=== PATIENT | female | born 1965 | race Caucasian/White ===

== ENCOUNTER 2017-06-25 07:29 | Day surgery (SDC) | payer MEDICAID ==
[2017-06-25] MEDS ORDERED: Lactated Ringers 1,000 ML IV SCH (08:30)
[2017-06-25] MEDS ORDERED: fentaNYL 100 MCG/2 ML SDV ONE (08:57)
[2017-06-25] MEDS ORDERED: Propofol 200 MG/20 ML SDV ONE (08:57)
[2017-06-25] MEDS ORDERED: Midazolam 1 MG/ML 2 ML SDV ONE (08:58)
[2017-06-25 11:15] VITALS: BP 129/82
--- NOTE | 2017-06-25 14:38 | OR ---
DATE OF PROCEDURE: 06/25/2017 PREOPERATIVE DIAGNOSIS: Colon cancer screening. POSTOPERATIVE DIAGNOSIS: Three colon polyps. PROCEDURE PERFORMED: Colonoscopy to the cecum with biopsy and then snare cautery polypectomy of transverse colon polyp. Snare cautery polypectomy of polyp at 25 cm from the anal verge, and biopsy resection of small polyp 20 cm from the anal verge. ANESTHESIA: IV anesthesia with monitored anesthesia care. INDICATION: This 51-year-old white female is referred for a colonoscopy for colon cancer screening. She has never had a colonoscopic exam. I counseled her for the procedure including risks and alternatives, and she gave her informed consent to proceed. DESCRIPTION OF PROCEDURE: The patient was placed in the left lateral decubitus position. IV anesthesia was administered by the Anesthesia Service. Time-out was held. A rectal exam was performed, which was unremarkable. The flexible video Olympus colonoscope was introduced through her anus, up her rectum, and out her colon all way to the cecum. Once the cecum was reached, the scope was slowly withdrawn, examining the mucosa throughout. In the transverse colon, we saw a sessile polyp. We initially biopsied this, it was too large to remove using this technique. A snare was passed about its base; it was elevated up away from the bowel wall. Electrocautery was applied. The polyp was amputated. The polyp was aspirated up through the scope and captured in a polyp trap. The scope was withdrawn further. At 25 cm from the anal verge we saw a pedunculated polyp. The snare was passed about its base; it was elevated up away from the bowel wall and amputated as electrocautery was applied. This polyp was aspirated up through the scope and captured in a polyp trap. At 20 cm from the anal verge, another small polyp was seen, which was removed with the biopsy forceps. The scope was retroflexed in the rectum with the distal rectum appearing unremarkable. The scope was straightened and removed. She tolerated the procedure well. Miguel Werner MD /[id number]
== END 2017-06-25 11:20 | disposition home or self-care (01) ==
LOC: JP.SDS 07:29
PROVIDERS: ATTEND Surgery
DX: Z12.11 Encounter for screening for malignant neoplasm of colon (principal); D12.3 Benign neoplasm of transverse colon; D12.6 Benign neoplasm of colon, unspecified; F17.210 Nicotine dependence, cigarettes, uncomplicated; Z88.1 Allergy status to other antibiotic agents; Z98.51 Tubal ligation status
CPT/HCPCS: 45380; 45385; 88305; J2250; J2704; J3010

== ENCOUNTER 2020-06-22 06:18 | Day surgery (SDC) | payer OTHER ==
[2020-06-22] MEDS ORDERED: Sodium Chloride 0.9% 1,000 ML IV SCH (07:00)
[2020-06-22] MEDS ORDERED: fentaNYL 100 MCG/2 ML SDV ONE (07:08)
[2020-06-22] MEDS ORDERED: Propofol 200 MG/20 ML SDV ONE (07:08)
[2020-06-22] MEDS ORDERED: Midazolam 1 MG/ML 2 ML SDV ONE (07:08)
[2020-06-22 08:46] VITALS: BP 121/79; PULSE 71
--- NOTE | 2020-06-22 11:11 | OR ---
DATE OF PROCEDURE: 06/22/2020 SURGEON: Tam Fry MD PROCEDURE: Colonoscopy. FINDINGS: Sigmoid colon polyp, approximately 8 mm, completely removed using hot snare and wire device. COMPLICATION: None. 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 ANESTHETIC: MAC. PREOPERATIVE DIAGNOSIS: Family history of colorectal cancer. POSTOPERATIVE DIAGNOSIS: Family history of colorectal cancer. RISKS: Risks, benefits, alternatives, and limitations including, but not limited to, infection, bleeding, and perforation were explained to the patient who wished to proceed. PROCEDURE IN DETAIL: The patient was placed in left lateral decubitus position. Digital rectal exam was performed without abnormality. Scope was introduced and advanced atraumatically to the ileocecal valve. The scope was brought back to the ascending, transverse, descending colon, and retroflexed. No old or new blood. No masses. No diverticulosis. The aforementioned polyp was identified and completely removed. No other abnormalities noted. No abnormalities on retroflexion. The patient tolerated the procedure well. Tam Fry MD /[id number]
== END 2020-06-22 08:46 | disposition home or self-care (01) ==
LOC: JP.SDS 06:18
PROVIDERS: ATTEND Surgery
DX: Z12.11 Encounter for screening for malignant neoplasm of colon (principal); D12.5 Benign neoplasm of sigmoid colon; Z80.0 Family history of malignant neoplasm of digestive organs
CPT/HCPCS: 45385; 88305; J2250; J2704; J3010; J7030

== ENCOUNTER 2025-07-20 07:34 | Day surgery (SDC) | payer OTHER ==
[2025-07-20] MEDS ORDERED: fentaNYL 100 MCG/2 ML SDV ONE (07:44)
[2025-07-20] MEDS ORDERED: Midazolam 1 MG/ML 2 ML SDV ONE (07:44)
[2025-07-20] MEDS ORDERED: Propofol 200 MG/20 ML SDV ONE (07:44)
[2025-07-20] MEDS: Lactated Ringers 1,000 ML IV SCH (08:16)
[2025-07-20 10:10] VITALS: BP 113/78; PULSE 66
== END 2025-07-20 10:20 | disposition home or self-care (01) ==
LOC: JP.SDS 07:34
PROVIDERS: ATTEND Surgery
DX: Z12.11 Encounter for screening for malignant neoplasm of colon (principal); D12.3 Benign neoplasm of transverse colon; Z86.0100 Personal history of colon polyps, unspecified
CPT/HCPCS: 00811; 45380; 45385; J2250; J2704; J3010; J7120; 88305